=== PATIENT | female | born 1965 | race Caucasian/White ===

== ENCOUNTER 2018-04-03 00:52 | Observation (INO) ==
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
[2018-04-03 01:43] LABS: Hematocrit 44.5 % (37.0-47.0); Hemoglobin 15.3 gm/dL (12.5-16.0); Mean Cell Volume 90.6 fl (78-100); Mean Corpuscular Hemoglobin 31.2 pg (27-31); Mean Corpuscular Hgb Conc 34.4 g/dl (32-36); Mean Platelet Volume 8.7 fl (8-12.5); Neutrophil # 7.6 K/mm3 (1.3-6.0); Neutrophil % 80.6 % (42-75.0); Platelet Count 359 K/mm3 (150-450); Red Blood Count 4.91 M/mm3 (4.2-5.4); Red Cell Distribution Width 12.1 % (11.5-14.0); White Blood Count 9.4 K/mm3 (4.0-10.5)
[2018-04-03 01:57] LABS: ALT 60 U/L (19-67); AST 44 U/L (0-48); Albumin * 4.1 gm/dl (3.4-5.0); Alkaline Phosphatase * 80 U/L (50-170); Anion Gap 15.2 mmol/L (6.8-13.8); BUN/Creatinine Ratio 30.4 (9.0-21.6); Bilirubin, Total 0.7 mg/dL (0.0-1.1); Blood Urea Nitrogen 31 mg/dL (3-23); Ca. Corrected For Albumin 9.2 mg/dL (8.4-10.2); Calcium * 9.6 mg/dL (7.9-10.9); Carbon Dioxide 24.7 mmol/L (24-32.6); Chloride 101 mmol/L (97-106); Glucose * 109 mg/dL (70-110); Potassium 3.9 mmol/L (3.4-4.6); Salicylate Less than 2.8 mg/dL (2.8-20.0); Sodium 137 mmol/L (132-142); Total Protein 7.9 gm/dL (6.2-8.2)
[2018-04-03 01:58] LABS: Urine Bilirubin Negative (NEGATIVE); Urine Blood Negative /ul (NEGATIVE); Urine Ketone 15 mg/dL (NEGATIVE); Urine Nitrite Negative (NEGATIVE); Urine Protein 15 mg/dL (NEGATIVE); Urine Specific Gravity >=1.030 SP.GR. (1.005-1.010); Urine Urobilinogen Normal (NORMAL)
[2018-04-03 02:00] LABS: Urine Appearance Clear (CLEAR); Urine Color Yellow
[2018-04-03 02:03] LABS: Urine Bacteria 1+; Urine RBC None Seen /hpf (0-5); Urine WBC 0-5 /hpf (0-5)
[2018-04-03 02:40] LABS: Cocaine Ur Negative (NEGATIVE); Urine Barbiturate Negative (NEGATIVE); Urine Benzodiazepines Negative (NEGATIVE); Urine Opiates Negative (NEGATIVE); Urine PCP Negative (NEGATIVE); Urine THC Negative (NEGATIVE)
[2018-04-03] MEDS ORDERED: NORMAL SALINE 1,000 ML IV ONE ×3 (03:22→05:37)
[2018-04-03] MEDS ORDERED: LORazepam 2 MG/ML DISP.SYRIN IV ONE (07:03)
--- NOTE | 2018-04-03 13:24 | CONS ---
HPI - General Source: patient, RN/MD, RN notes reviewed, old records Exam Limitations: no limitations - History of Present Illness Timing/Duration: unsure Allergies/Adverse Reactions: Allergies No Known Allergies Allergy (Verified 04/03/18 08:30) Home Medications: Home Medications Medication Instructions Recorded Last Taken aspirin 81 mg chewable tablet 81 mg PO DAILY 12/28/17 Unknown calcium carbonate 600 mg (1,500 2 tab PO DAILY tab 12/28/17 Unknown mg)-vitamin D3 200 unit tablet multivitamin tablet 1 tab PO DAILY 12/28/17 Unknown omega 1-vmq-eid-fish oil 1,000 mg 1 cap PO DAILY 12/28/17 Unknown (120 mg-180 mg) capsule aripiprazole 2 mg tablet 2 mg PO DAILY #90 tab 01/01/18 Unknown Procedures CL FX REDUC-RADIUS/ULNA (06/14/09) Measurement of Arterial Saturation, Peripheral, Percutaneous Approach (01/17/18) Review of Systems - Review of Systems Generalized/Overall Review: Present: Weight gain Neurological: Present: Emotional Problems Physical Examination - Exam Narrative: Visit lasts approx. 20 minutes. Is alert and oriented. States that she is hungry. Can't remember why she was brought to the ER. Patient states that she stopped taking Abilify but not sure how long ago. States that she restarted it at prescribed 2 mg over the weekend. States that she is not sure what happened. States that she wasn't drinking or eating as much, kept forgetting things like to brush her teeth, and had no energy after stopping Abilify. Has been stable on Abilify 2 mg for quite some time. Discussed s/s of bipolar depression. Discussed importance of medication compliance. Patient is concerned about weight gain but is reluctant to consider a different medication at this point in time. Discussed R/B/SE of medications. Will restart Abilify 2 mg. Is cleared by psychiatry for discharge. Vital Signs: Vital Signs - Last Taken Temp 36.7 C 04/03/18 11:47 Pulse 96 04/03/18 11:47 Resp 25 H 04/03/18 11:47 BP 128/78 04/03/18 11:47 Pulse Ox 96 04/03/18 11:47 O2 Oxygen Delivery Method Room Air Constitutional: Present: Alert, Oriented x3 Appearance: Present: appropriate appearance, appropriate insight, impaired recent memory Eye contact: Present: cooperative, good eye contact, normal speech Thoughts: Present: normal thought pattern - Results and Findings: Lab/Microbiology results last 24 hrs: Abnormal/Pending Laboratory Last 24 HRS 04/03/18 04/03/18 04/03/18 01:48 01:40 01:40 MCH 31.2 H Neutrophils % 80.6 H Lymphocytes % 13.7 L Neutrophils # 7.6 H Lymphocytes # 1.29 L Anion Gap 15.2 H BUN 31 H D BUN/Creatinine Ratio 30.4 H Urine Protein 15 H Ur Leukocyte Esterase 25 H Ur Epithelial Cells 5-10 H Urine Bacteria 1+ H Salicylates Less than 2.8 L Acetaminophen Less than 0.2 L - Assessments/Findings (1) Bipolar affective disorder, current episode depressed Problem: Chronic Qualifiers:
[2018-04-03] MEDS ORDERED: ARIPiprazole 10 MG TABLET PO SCH (13:45)
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
--- NOTE | 2018-04-04 08:54 | DS ---
(1) Dehydration Diagnosis(s): Patient feeling much better since receiving IV fluids. Discussed in detail with her and her the need to make sure she takes her medications as directed since she takes better care of herself when she is compliant with her tx. Both stated their understanding. She has an appointment to follow up with Tessa dodge. Problem: Acute (2) Bipolar disease, chronic Diagnosis(s): Restart abilify, take as directed. Follow up with Psych as planned. Problem: Chronic (3) Schizoaffective disorder, bipolar type, with catatonia Problem: Acute Description of Stay: Patient brought into the hospital after being off her abilify for roughly 3-4 days. She was minimally responsive, found staring out the window, not answering questions. She was brought in and started on IV fluids. Her abilify was suppose to be brought in by her but we are unsure if he did this or not as he did not check the medication in as directed. She does have the medication at home though and I will talk with both her and her again about the importance of being compliant with taking her meds. She has perked up since being given fluids. She is A&O x 3. Her vitals have been stable over night. From a medical standpoint, she is in good condition to go home. She has been cleared by psych to go home as well and agrees to follow up with them as directed. Procedures Performed: none Results and Findings: Pending Mircobiology Results 04/03/18 01:48 Urine,Catheterized Urine Culture - Preliminary No Growth Lab Pending Results 04/03/18 01:40: WBC 9.4, RBC 4.91, Hgb 15.3, Hct 44.5, MCV 90.6, MCH 31.2 H, MCHC 34.4, RDW 12.1, Plt Count 359, MPV 8.7, Immature Gran % (Auto) 0.20, Immature Gran # (Auto) 0.02, Neutrophils % 80.6 H, Lymphocytes % 13.7 L, Monocytes % 4.8, Eosinophils % 0.2, Basophils % 0.5, Nucleated RBC % 0.0, N eutrophils # 7.6 H, Lymphocytes # 1.29 L, Monocytes # 0.5, Eosinophils # 0.0, Absolute Basophils 0.1 04/03/18 01:40: Sodium 137, Plasma Sodium 137, Potassium 3.9, Chloride 101, Carbon Dioxide 24.7, Anion Gap 15.2 H, BUN 31 H D, Creatinine 1.02, Est GFR (Non-Af Amer) 60, BUN/Creatinine Ratio 30.4 H, Random Glucose 109, Calcium 9.6, Calcium Adj for Albumin 9.2, Total Bilirubin 0.7, AST 44, ALT 60, Alkaline Phosphatase 80, Total Protein 7.9, Albumin 4.1, Salicylates Less than 2.8 L, Acetaminophen Less than 0.2 L, Ethyl Alcohol Less than 3.0 04/03/18 01:48: Urine Color Yellow, Urine Appearance Clear, Urine pH 6.0, Ur Specific [place] >=1.030, Urine Protein 15 H, Urine Glucose (UA) Negative, Urine Ketones 15, Urine Blood Negative, Urine Nitrate Negative, Urine Bilirubin Negative, Prot Sulfosalicylic Acd Negative, Urine Urobilinogen Normal, Ur Leukocyte Esterase 25 H, Urine RBC None seen, Urine WBC 0-5, Ur Epithelial Cells 5-10 H, Urine Bacteria 1+ H, Urine Culture Comments Culture to follow 04/03/18 01:48: Urine Opiates Screen Negative, Barbiturate Screen Negative, Ur Phencyclidine Scrn Negative, Urine Amphetamine Negative, U Benzodiazepines Scrn Negative, Urine Cocaine Screen Negative, Urine Marijuana (THC) Negative Discharge Location: Home Disposition: Home self-care Condition: Good Discharge Activity: Activity as tolerated Discharge Diet: General/regular food Referrals: Radha Luna MD [Primary Care Provider] - [facility],RAMÓN Gar [[facility]] - 04/25/18 (as directed. ) Additional Patient Instructions (free text): Follow up with Tessa Torres 04/25/18 at 9:30am. Complete Home Medications List: Complete Home Medication List: aspirin 81 mg chewable tablet 81 mg PO DAILY 12/28/17 calcium carbonate 600 mg (1,500 mg)-vitamin D3 200 unit tablet 2 tab PO DAILY tab 12/28/17 multivitamin tablet 1 tab PO DAILY 12/28/17 omega 3-yjd-bdq-fish oil 1,000 mg (120 mg-180 mg) capsule 1 cap PO DAILY 12/28/17 aripiprazole 2 mg tablet 2 mg PO DAILY #90 tab 01/01/18
[2018-04-04] MEDS ORDERED: ARIPiprazole 5 MG TABLET PO ONE (09:14)
[2018-04-04 10:28] VITALS: BP 148/87
== END 2018-04-04 10:25 | disposition home or self-care (01) ==
LOC: ER 00:52 → MS 00:52
PROVIDERS: ADMIT Family Medicine; ATTEND Family Medicine
CPT/HCPCS: 36415; 70450; 80053; 80307; 80320; 80329; 81001; 85025; 87077; 87086; 87186; 90471; 90686; 94762; 96361; 96374; 99285; G0378; G0479; G0480; G0481